=== PATIENT | male | born 1970 | race Caucasian/White ===

== ENCOUNTER → 2022-06-16 | Outpatient (CLI) | payer OTHER ==
[~2022-06-16] MED LIST: HYDMOR4 PO; IBUP800 PO; OXYACE5T PO; RXOXYACE PO
== END ==
LOC: LAB 12:54 → LAB SHORT 12:54
DX: H60.393 Other infective otitis externa, bilateral (principal); H90.3 Sensorineural hearing loss, bilateral
CPT/HCPCS: 87070; 87077; 87147; 87186; 87205